=== PATIENT | female | born 1965 | race Caucasian/White ===

== ENCOUNTER 2019-08-17 06:12 | Inpatient (IN) | payer OTHER ==
[~2019-08-17] VITALS: Ht 157.5 cm; Wt 57.2 kg
[2019-08-17] VITALS (20 sets, daily range): BP systolic 85–111; BP diastolic 49–76
[~2019-08-17 06:12] MED LIST: ALPRAZOLAM0.25 MG ORAL; ATIVAN1 MG ORAL; CLARITIN-D 241 EACH PO; IRON PO; SPIRONOLACTONE50 MG ORAL; VITAMIN C250 MG ORAL
[2019-08-17] MEDS ORDERED: ceFAZolin sod 1 GM in NS 55 ML IVPB ONE (07:00)
[2019-08-17] MEDS ORDERED: Vancomycin 1gm vial IVPB ONE (07:11)
[2019-08-17] MEDS ORDERED: Thrombin 5000 units TOPIC ONE ×2 (07:11→07:12)
[2019-08-17] MEDS ORDERED: Bupivacaine w/Epi 0.5% 30ml Vial INJ ONE (07:12)
[2019-08-17] MEDS ORDERED: Bacitracin 50000 Units Vial ONE (07:12)
[2019-08-17] MEDS ORDERED: Gelfoam Size TOPIC ONE (07:12)
[2019-08-17] MEDS ORDERED: Lidocaine 1% MPF 10mg/ml 5ml ONE (07:29)
[2019-08-17] MEDS ORDERED: Midazolam 2mg/2ml Inj ONE (07:33)
[2019-08-17] MEDS ORDERED: fentaNYL 100 mcg/2 mL IV ONE (07:33)
[2019-08-17] MEDS ORDERED: NS Irrig 1000ml IRRIG ONE ×2 (07:37→08:46)
[2019-08-17] MEDS ORDERED: Succinylcholine 20mg/ml 10ml vial ONE (07:44)
[2019-08-17] MEDS ORDERED: Rocuronium Bromide 50mg/5ml Inj IV ONE (07:44)
[2019-08-17] MEDS ORDERED: Sterile Water Irrig 1000ml IRRIG ONE (08:12)
[2019-08-17] MEDS ORDERED: NS Irrig 1000ml ONE (08:12)
--- NOTE | 2019-08-17 08:27 | Pre-Procedure Note/Attestation ---
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 I attest that, if there was a reasonable possibility of needing a blood transfusion, the patient (or the patient's legal ambulatory service representative) was given the [facility] standardized written summary, pursuant to the [place] Blood Safety Act ([place] Health and Safety Code # 1645, as amended). I attest that I re-evaluated the patient just prior to the surgery and that there has been no change in the patient's H&P, except as documented below: Hung Hoffman MD Aug 17, 2019 08:27
--- NOTE | 2019-08-17 08:28 | Anethesia Preoperative Eval ---
Anesthesia Pre-op PMH/ROS General Date of Evaluation: Aug 17, 2019 Time of Evaluation: 08:12 Anesthesiologist: Tyler ASA Score: ASA 2 Mallampati Score Class I : Soft palate, uvula, fauces, pillars visible Class II: Soft palate, uvula, fauces visible Class III: Soft palate, base of uvula visible Class IV: Only hard plate visible Mallampati Classification: Class II Surgeon: Dalton Diagnosis: Reained lumbar spie hardwear Surgical Procedure: Revision of lumbar fusion Anesthesia History: none Family History: no anesthesia problems Allergies: Coded Allergies: FENTANYL (Verified Allergy, Severe, 08/16/19) LOW BP GABAPENTIN (Verified Allergy, Severe, 08/16/19) VERTIGO OPIOIDS - MORPHINE ANALOGUES (Verified Allergy, Severe, 08/16/19) "GOT VERY SICK" TRAMADOL (Verified Allergy, Severe, 08/16/19) TUNNEL VISION, GOT VERY SICK Uncoded Allergies: MOST NARCOTICS (Allergy, Severe, 08/16/19) Medications: see eMAR Patient NPO?: Yes NPO Date: Aug 16, 2019 NPO Time: 1900 Past Medical History Cardiovascular: Denies: HTN, CAD, NE, valve dz, arrhythmia, other Pulmonary: Denies: asthma, COPD, KIMMIE, other Gastrointestinal/Genitourinary: Reports: GERD Neurologic/Psychiatric: Reports: depression/anxiety, other - chronic pain; Denies: dementia, CVA, TIA Endocrine: Denies: DM, hypothyroidism, steroids, other HEENT: Denies: cataract (L), cataract (R), glaucoma, QUILEUTE (L), QUILEUTE (R), other Hematology/Immune: Denies: anemia, DVT, bleeding disorder, other Musculoskeletal/Integumentary: Denies: OA, RA, DJD, DDD, edema, other PMH Narrative: as above PSxH Narrative: Lumbar spine Sx x2, T&A wrist and ankle Sx Anesthesia Pre-op Phys. Exam Physician Exam Last Vital Signs Date Time Temp Pulse Resp B/P (MAP) Pulse Ox O2 Delivery O2 Flow Rate FiO2 08/17/19 06:58 Room Air 08/17/19 06:56 97.6 66 18 111/76 (88) 100 Constitutional: NAD Neurologic: CN 2-12 intact Cardiovascular: RRR, no M/R/G Respiratory: CTA Gastrointestinal: S/NT/ND Airway Exam Mallampati Score: Class II MO: full Neck: flexible ROM: full Teeth: intact Dentures: no upper, no lower Anesthesia Pre-op A/P Labs see chart Studies Pre-op Studies: EKG - NSR Risk Assessment & Plan Assessment: ASA 2 Plan: GA with ETT prone position, neuromonitoring Status Change Before Surgery: No Pre-Antibiotics Drug: Ancef 1gr. Given Within 1 Hr of Incision: Yes Time Given: 08:40 Manuel Scott MD Aug 17, 2019 08:28
[2019-08-17] MEDS ORDERED: Acetaminophen (Non formulary) 100 ML IV ONE (08:30)
[2019-08-17] MEDS ORDERED: Morphine Sulfate 10mg/ml Inj ONE (09:31)
[2019-08-17] MEDS ORDERED: Glycopyrrolate 0.2mg/ml 1ml Vial ONE (09:32)
[2019-08-17] MEDS ORDERED: Neostigmine 1mg/ml 10ml Inj ONE (09:32)
[2019-08-17] MEDS ORDERED: Sodium Chloride 10ml vial INJ ONE (09:32)
--- NOTE | 2019-08-17 10:11 | NUR ---
CASE MANAGEMENT:REVIEW 54 YR OLD FEMALE HERE FOR ELECTIVE SURGERY SI: PSEUDOARTHROSIS L4-5 RADICULOPATHY 97.6 66 18 111/76 100% ON RA IS: TO SURGERY FOR: REMOVAL OF HARDWARE,REDO POSTERIOR LUMBAR FUSION AND LAMINECTOMY : TO MED/SURG 3 EAST POST OP INTERQUAL CRITERIA MET
[2019-08-17] MEDS ORDERED: Ketorolac 30mg Inj ONE (10:22)
[2019-08-17] MEDS ORDERED: oxyCODONE 5mg IR tab ORAL PRN (10:45)
[2019-08-17] MEDS ORDERED: HYDROmorphone 1mg/ml Carpuject SUBQ PRN (10:45)
[2019-08-17] MEDS ORDERED: Milk of Magnesia 30ml Ud ORAL PRN ×2 (10:45→12:30)
[2019-08-17] MEDS ORDERED: Hydromorphone 0.5mg/0.5ml inj IVP PRN ×2 (10:45→11:30)
[2019-08-17] MEDS ORDERED: PCA HYDROmorphone 1mg/ml 30 ML IV PRN ×2 (10:45)
[2019-08-17] MEDS ORDERED: ALPRAZolam 0.25mg tab ORAL PRN (10:45)
[2019-08-17] MEDS ORDERED: Cyclobenzaprine 10mg Tab ORAL PRN (10:45)
[2019-08-17] MEDS ORDERED: LR 1000ml 1,000 ML IVLG SCH (11:27)
[2019-08-17] MEDS ORDERED: DiphenhydrAMINE 50mg/ml Inj IVP PRN (11:30)
[2019-08-17] MEDS ORDERED: Metoclopramide 10mg/2ml Inj IVP PRN (11:30)
[2019-08-17] MEDS ORDERED: Midazolam 2mg/2ml Inj IVP PRN (11:30)
[2019-08-17] MEDS ORDERED: Ketorolac 30mg Inj IV PRN (11:30)
--- NOTE | 2019-08-17 12:21 | Brief Operative Note ---
Immediate Post Operative Note Operative Note Pre-op Diagnosis: Pseudoarthrosis l45 with radic Procedure: L45 HWR. Redo fusion, and instrumentation, and L redo laminectomy and facetectomy Post-op Diagnosis: same as pre-op Findings: consistent w/pre-op dx studies Surgeon: marlon Hoop Maker Machine: tania cook Anesthesiologist: reg Anesthesia: general Specimen: none Complications: none Condition: stable Fluids: 1200 Estimated Blood Loss: volume - 100 Drains: hemovac Implant(s) used?: Yes - bactrin bone and ruby putty, spinal elements screws Hung Hoffman MD Aug 17, 2019 12:21
--- NOTE | 2019-08-17 14:00 | NUR ---
NURSE NOTES: REC'D FROM PACU SP REMOVAL OF HARDWARE , REDO POSTERIOR FUSION, DECOMPRESSION L4-L5 LAMINECTOMY. DROWSY BUT AROUSABLE. BACK DRESSING DRY AND INTACT. ICE PACK ON. V/S TAKEN. NO C/O PAIN. BLE STONG. IN NO DISTRESS.
--- NOTE | 2019-08-17 14:10 | NUR ---
NURSE NOTES: DR GOMEZ CALLED RE PT'S [facility]. LEFT MESSAGE TO RETURN CALL.
[2019-08-17] MEDS ORDERED: Rate Change PCA 1 Each MISC PRN (14:15)
--- NOTE | 2019-08-17 14:15 | Diagnostic Imaging Report ---
INDICATION: Pain, intraoperative TECHNIQUE: Intraoperative imaging Fluoroscopy time: 30.9 seconds Total dose: 0.17638 mGym2 Total number of images: 5 COMPARISON: None FINDINGS: Intraoperative images demonstrate removal of interspinous device at L4-5 and subsequent placement of posterior fusion hardware. IMPRESSION: Intraoperative imaging, as described
--- NOTE | 2019-08-17 14:17 | Immediate Post-Op Evaluation ---
Immediate Post-Op Evalulation Immediate Post-Op Evalulation Procedure: L4-L5 revision of lumbar fusion with removal of hardwear and decompression Date of Evaluation: Aug 17, 2019 Time of Evaluation: 12:45 IV Fluids: 1400 Blood Products: none Estimated Blood Loss: 100 Urinary Output: 250 Blood Pressure Systolic: 95 Blood Pressure Diastolic: 56 Pulse Rate: 72 Respiratory Rate: 20 O2 Sat by Pulse Oximetry: 99 Temperature (Fahrenheit): 97.7 Pain Score (1-10): 1 Nausea: No Vomiting: No Complications none Patient Status: reacts, patent, extubated, none Hydration Status: adequate Manuel Scott MD Aug 17, 2019 14:17
[2019-08-17] MEDS ORDERED: NS 250 ML IVPB ONE (14:28)
[2019-08-17] MEDS: D5 1/2NS 1,000 ML IV SCH ×2 (14:38→23:58)
[2019-08-17] MEDS ORDERED: ceFAZolin sod 1 GM in D5W 55 ML IV SCH (16:00)
--- NOTE | 2019-08-17 17:30 | Consultation ---
DATE OF CONSULTATION: 08/17/2019 CONSULTING PHYSICIAN: Sam Retana M.D. REFERRING PHYSICIAN: Hung Hoffman M.D. REASON FOR CONSULTATION: Acute pain consult. HISTORY OF PRESENT ILLNESS: Dear Dr. Hung Hoffman, Thank you kindly for consulting me to evaluate and render an opinion as to how to proceed in the management of the patient's acute postoperative lumbar spine pain after her revision lumbar spine instrumentation surgery today with removal of fractured hardware. The patient is a 54-year-old woman with multiple medication allergies making her postoperative course complicated. She has significant anxiety for which she uses Xanax, both Xanax and Ativan routinely throughout the day. She has drug allergies to fentanyl, hydrocodone, morphine, tramadol. Because of the patient's complicated medical history list and her postoperative lumbar spine instrumentation surgery today, you consulted me to help manage her postoperative pain. I performed a detailed history and physical examination. I reviewed the medical record in detail. I discussed the case with yourself, Dr. Hoffman. PAST MEDICAL HISTORY: 1. Acute postoperative lumbar spine pain, status post revision lumbar spine instrumentation surgery by Dr. Hung Hoffman in July 2019. 2. Work-related injury. 3. Multiple drug allergies. 4. Anxiety. MEDICATIONS AT HOME: Spironolactone 50 mg b.i.d., Xanax 0.25 mg b.i.d. p.r.n., Ativan 1 mg. ALLERGIES: Multiple, include fentanyl, Neurontin, hydrocodone, morphine analogs, tramadol. FAMILY HISTORY: Malignancy, diabetes. PAST SURGICAL HISTORY: 1. Lumbar spine fusion surgery in March 2012. 2. Left wrist surgery in 1981 x2. 3. Left foot surgery in 1988 x2. 4. Tonsillectomy in 1978. 5. Eye surgery . REVIEW OF SYSTEMS: Per Brian Dennison M.D. PHYSICAL EXAMINATION: GENERAL: Age 54. Height 5 feet 2 inches. Weight 132 pounds. Body mass index 24. VITAL SIGNS: Afebrile, pulse 66, respirations 18, blood pressure 111/76. Oxygen saturation 100%. HEENT: Normocephalic and atraumatic. CHEST: Clear to auscultation. HEART: Regular rate and rhythm. NEUROLOGIC: A detailed lumbar spine and neurologic exam per Dr. Hoffman. BREASTS: Deferred. GENITOURINARY: Deferred. DIAGNOSTIC TESTING: Laboratory studies from 08/09/2019 shows glucose 83, sodium 141, potassium 4.4, chloride 105, bicarbonate 23, BUN 17, and creatinine 0.8. Calcium 9.7. Total protein 6.5, albumin 4.2. AST 25, ALT 18, alkaline phosphatase 84. Total bilirubin 0.5. TSH 1.9. Hemoglobin A1c normal. Sedimentation rate normal at 14, less than 30. White count 6, hematocrit 43, platelets 278,000. INR 1.0. PTT 23. A 12-lead EKG shows heart rate 67. No evidence for acute cardiac ischemia. Preoperative chest x-ray from 08/09/2019 shows no acute cardiopulmonary disease. Pulmonary function testing shows normal spirometry in July 2019. CT lumbar spine dated 09/18/2018 shows status post anterior posterior fusion at L4-L5, fractured screw on the right side of L5-S1 in the anterior plate. IMPRESSION: 1. Acute postoperative lumbar spine pain, status post revision lumbar spine instrumentation surgery by Dr. Hung Hoffman in July 2019. 2. Work-related injury. 3. Multiple drug allergies. 4. Anxiety. TREATMENT RECOMMENDATIONS: After revision instrumentation surgery today, with the patient's multiple narcotic allergies, I have recommended the following analgesic plan. She cannot tolerate morphine, so I will trial her on a Dilaudid FRONT OFFICE ATTENDANT with 0.2 mg demand dose at 10-minute lockout and a 1 hour limit of 1.2 mg. Additionally, I have ordered a breakthrough dose of Dilaudid 0.5 mg intravenously every three hours for moderate pain with a double dose of 1 mg subcutaneously every three hours p.r.n. for severe breakthrough pain. The patient seems to have tolerated Flexeril in the past, I have ordered 5 mg orally every 8 hours p.r.n. for muscle spasm. I have asked nursing to place Chloraseptic spray at the bedside in case of any sore throat complaints. The patient has a long history of anxiety and benzodiazepine usage. She uses 1 mg of lorazepam, Ativan nearly every night. I have made that available on a p.r.n. basis, p.r.n. for insomnia. The patient uses Xanax 0.25 mg at home frequently, multiple times per day. I have increased the frequency to every 6 hours p.r.n. for anxiety at 0.25 mg oral dose. I have ordered a dose of Fioricet one tablet orally every 8 hours in case of headache symptoms. The patient components of Fioricet do not appear to be within the patient's allergy listing. If the patient does not tolerate [place], however, there is no allergy to avoid oxycodone, Percocet. So, I will trial her on 10 mg orally oxycodone every 3 hours p.r.n. for mild pain. I have ordered multiple p.r.n. doses to help the patient's comfort postoperatively. I have ordered Tylenol for fever p.r.n. I have ordered Benadryl 25 mg orally every 6 hours in case of any itching complaints p.r.n. I have ordered milk of magnesia as a rescue laxative. I have ordered Mylanta 30 mL q.6 h. in case of any GERD symptom exacerbation. I have ordered Zofran 4 mg intravenously every 4 hours p.r.n. for nausea and vomiting. I will place the patient on Colace 100 mg b.i.d. as a stool softener to help promote bowel regularity. I will defer any hypertensive issues to the hospitalist team. I will have restart her Aldactone at b.i.d. 50 mg dosing. I have ordered incentive spirometer to encourage good pulmonary toilet. I will defer DVT prophylaxis to the surgeon. Sam Retana M.D. DR: JH JOB#: [id number] CC:
[2019-08-17] MEDS: Docusate 100mg cap ORAL SCH (17:39)
[2019-08-17] MEDS ORDERED: Docusate 100mg cap ORAL SCH (18:00)
--- NOTE | 2019-08-17 18:30 | NUR ---
NURSE NOTES: offered assistance to go to the bathroom to urinate. states has no urge to urinate and no discomfort. bladder scan done 0cc obtained. not distended.
--- NOTE | 2019-08-17 19:00 | NUR ---
NURSE NOTES: resting. no acute changes.
[2019-08-17] MEDS: Chloraseptic Spray 20mL Bottle ORAL PRN ×2 (19:01→23:59)
[2019-08-17] MEDS: PCA shift volume MISC SCH (19:17)
--- NOTE | 2019-08-17 19:29 | NUR ---
HAND-OFF: Report given to hanna archibald rn.
--- NOTE | 2019-08-17 19:45 | NUR ---
NURSE NOTES: Recieved report from RN JOSUE allen is a/ox4, breaths even regular and unlabored . monitoring s/p spinal fusion, patient on O2 with Nc at 3litres ,surgical site dressing in intact patient states feeling uncomfortable only when she moves. bed in low and locked position , call light with in reach
[2019-08-17] MEDS: LORazepam 1mg tab ORAL SCH ×2 (20:04→23:59)
[2019-08-17] MEDS: ceFAZolin sod 1 GM in D5W 55 ML IV SCH (20:04)
--- NOTE | 2019-08-17 20:15 | Operative Note - Dictated ---
DATE OF OPERATION: 08/17/2019 SURGEON: Hung Hoffman M.D. CONCHE LOADER AND UNLOADER: Gilberto Finch PA-C. ANESTHESIOLOGIST: Manuel Scott M.D. ANESTHESIA TYPE: General endotracheal anesthesia. PREOPERATIVE DIAGNOSES: 1. Status post anterior/posterior spinal fusion using interspinous fusion device. 2. Pseudarthrosis with catastrophic hardware failure anteriorly. 3. Left lower extremity radiculopathy status post prior decompression. 4. Mechanical back pain with left lower extremity radiculopathy. POSTOPERATIVE DIAGNOSES: 1. Status post anterior/posterior spinal fusion using interspinous fusion device. 2. Pseudarthrosis with catastrophic hardware failure anteriorly. 3. Left lower extremity radiculopathy status post prior decompression. 4. Mechanical back pain with left lower extremity radiculopathy. PROCEDURE: 1. Removal of interspinous fixation device. 2. Exploration of fusion. 3. Pedicle screw instrumentation, L4-L5 bilaterally. 4. Posterior spinal fusion/enrollment advisor lateral spinal fusion, L4-L5, right side. 5. Redo laminectomy and complete facetectomy L4-L5. 6. Lysis of adhesions and neurolysis. 7. Pedicle screw stimulation and neurodiagnostic testing. 8. Use of fluoroscopy for localization. 9. Use of operating microscope. ESTIMATED BLOOD LOSS: 100 mL. FLUIDS: 1200. URINE: 400. COMPLICATIONS: None. INDICATIONS: This is a very pleasant woman with mechanical back pain and left lower extremity pain with imaging studies consistent with pseudoarthrosis and catastrophic hardware failure. Surgical intervention was discussed. After all conservative care failed, she elected to proceed. RISK NOTE: The patient was explained in detail risks and benefits of surgery to include, but not be limited to those of bleeding, infection, damage to nerves, vessels, tendons, anesthetic risk, allergic reaction, aspiration, possibly . The patient understood and wished to proceed. OPERATIVE PROCEDURE IN DETAIL: The patient was taken to the operative suite. After general endotracheal anesthesia was obtained, Thomas catheter was placed. She was turned prone onto a Carl frame. The back was prepped and draped in the usual sterile fashion. Prior incision was marked out. It was infiltrated with Marcaine with epinephrine. Incision was extended proximally and reincised. Subperiosteal dissection was carried out bilaterally at L4-L5 level. The hardware was identified. There was a small shell of bone and scar tissue which was removed in a piecemeal fashion. The interspinous fusion device, which clearly had not fused, was mobilized, disengaged, and removed. At this juncture, attention was first turned to the right side. Meticulous exploration of the fusion was obtained demonstrating a mobile facet joint. At this point, decortication of the transverse processes was performed. The pedicle screws were then identified, drilled, probed, and the appropriate sized screws (45 x 6.5 mm screws spinal elements) were inserted after being under tapped with a 5 mm tap. These were cannulated screws. At this point, once satisfied with hardware placement, pedicle stimulation was tested and noted to be at or above 20 milliamps. At this point, the large piece of Bacterin bone strip was deployed and placed in the intertransverse region. The appropriate sized rods were applied. Locking caps were applied and torqued to the appropriate level. The right side was packed off. Attention was made for the left side in a similar fashion. Pedicle screws were placed at the L4 and L5 level. Once the screws were placed, a high-power microscope was brought into place and a complete facetectomy was performed by drilling out the facet joint and the lateral edge of the lamina down to the deeper tissue. The nerve root was protected. The facet was removed in a piecemeal fashion then with a Kerrison punch. The epidural scar tissue was mobilized. The deep (anterior facet) capsule was then removed in a piecemeal fashion, exposing the exiting L4 nerve root on the left side. At this point, copious irrigation was applied. It was elected not to put bone graft on the left side. FloSeal was applied. The appropriate sized rods were applied on the left side after pedicle screw stimulation was confirmed to be above 20 milliamps. At this juncture, once satisfied with the fixation, meticulous hemostasis was achieved. Copious irrigation was performed. Additional decortication of the right side at L4 and L5 lamina was performed and local autograft bone as well as Howard Putty were then applied onto the right side. Medium-sized Hemovac drain was placed deep to the fascia. The vancomycin powder was applied. The fascia was then repaired in a [id number] fashion. Subcutaneous closure using 2-0 Vicryl. Dermabond was applied in the process of removing the drapes, the Hemovac did pull out, the hole was covered, and no attempts at replacements was made as adequate hemostasis was achieved initially. At this point, the patient was then turned onto her back, awakened, and extubated. Thomas catheter was inadvertantly removed and she was transferred to recovery room in stable condition. [facility] Sri Hoffman DR: VIRIDIANA JOB#: [id number] CC: DAVONTE
[2019-08-17] MEDS ORDERED: LORazepam 0.5mg tab ORAL SCH (21:00)
[2019-08-17] MEDS ORDERED: Spironolactone 50mg tab ORAL SCH (21:00)
[2019-08-18] VITALS (7 sets, daily range): BP systolic 89–139; BP diastolic 49–82
[2019-08-18] MEDS: LORazepam 1mg tab ORAL PRN ×2 (00:14→21:08)
--- NOTE | 2019-08-18 04:10 | NUR ---
NURSE NOTES: Bladder scan done with 433ml result residual. Assisted pt to toilet & pt urinated 550 ml of yellow urine without difficulty.
[2019-08-18] MEDS: ceFAZolin sod 1 GM in D5W 55 ML IV SCH ×2 (04:21→11:31)
--- NOTE | 2019-08-18 06:54 | 48 Hour Post Anesthesia Eval ---
Post Anesthesia Evaluation Procedure: L4-L5 revision of lumbar fusion with removal of hardwear and decompression Date of Evaluation: Aug 18, 2019 Time of Evaluation: 06:53 Blood Pressure Systolic: 104 0: 62 Pulse Rate: 68 Respiratory Rate: 20 Temperature (Fahrenheit): 98.6 O2 Sat by Pulse Oximetry: 100 Airway: patent Nausea: No Vomiting: No Pain Intensity: 3 Hydration Status: adequate Cardiopulmonary Status: Stable Mental Status/LOC: patient returned to baseline Follow-up Care/Observations: 0 Post-Anesthesia Complications: 0 Follow-up care needed: N/A Ottoniel Dc MD Aug 18, 2019 06:54
[2019-08-18] MEDS: PCA shift volume MISC SCH (07:16)
--- NOTE | 2019-08-18 07:20 | NUR ---
HAND-OFF: Report given to VERO Pozo. Pt in stable condition.
[2019-08-18] MEDS: Chloraseptic Spray 20mL Bottle ORAL PRN (07:47)
[2019-08-18] MEDS: Docusate 100mg cap ORAL SCH ×2 (08:53→17:39)
--- NOTE | 2019-08-18 08:53 | Orthopedic Spine Progress Note ---
Ortho Spine - Progress Note Subjective Symptoms: c/o post-op back pain, other - Rt thigh and Rt ankle pain likely due positioning Objective Vital Signs: Last 24 Hour Vital Signs Date Time Temp Pulse Resp B/P (MAP) Pulse Ox O2 Delivery O2 Flow Rate FiO2 08/18/19 08:30 Nasal Cannula 3.0 08/18/19 08:00 98.5 75 18 110/68 (82) 97 08/18/19 08:00 75 18 97 08/18/19 06:54 68 20 100 08/18/19 04:00 68 20 100 08/18/19 04:00 98.6 68 20 104/62 (76) 100 08/18/19 00:00 99.3 66 20 113/64 (80) 99 08/18/19 00:00 66 20 99 08/17/19 21:00 Nasal Cannula 3.0 08/17/19 20:00 97.1 61 18 96/55 (69) 99 08/17/19 20:00 61 18 99 08/17/19 18:45 98.1 68 20 96/60 (72) 99 08/17/19 16:00 97.3 72 20 102/72 (82) 96 08/17/19 16:00 68 17 96 08/17/19 15:00 97.1 53 19 90/51 (64) 97 08/17/19 14:40 68 17 97 08/17/19 14:30 98.3 69 18 89/59 (69) 97 08/17/19 14:17 72 20 99 08/17/19 14:05 68 17 94 08/17/19 14:00 97.7 68 17 89/49 (62) 94 08/17/19 14:00 Nasal Cannula 3.0 08/17/19 13:50 15 08/17/19 13:50 97.3 08/17/19 13:41 97.3 70 15 93/50 100 Nasal Cannula 3 08/17/19 13:35 15 08/17/19 13:35 72 16 92/56 100 Nasal Cannula 3 08/17/19 13:25 68 14 95/58 100 Nasal Cannula 3 08/17/19 13:20 14 08/17/19 13:15 72 15 91/55 100 Nasal Cannula 3 08/17/19 13:05 15 08/17/19 13:00 76 17 96/55 100 Simple Mask 6 08/17/19 12:55 82 16 98/60 100 Simple Mask 6 08/17/19 12:50 83 15 94/58 100 Simple Mask 6 08/17/19 12:45 97.5 85 12 85/54 100 Simple Mask 6 I&O: Intake and Output 08/17/19 08/18/19 19:00 07:00 Intake Total 2620 ml 1540 ml Output Total 350 ml 550 ml Balance 2270 ml 990 ml Intake Oral 120 ml 240 ml IV Total 2500 ml 1300 ml Output Urine Total 250 ml 550 ml Estimated Blood Loss 100 ml Wound: clean, intact Drains: none Neuro Status: normal Assessment Procedure Performed: L45 HWR. Redo fusion, and instrumentation, and L redo laminectomy and facetectomy Plan Plan: PT, pain management, d/c antibiotics, discharge plan Hung Hoffman MD Aug 18, 2019 08:53
--- NOTE | 2019-08-18 08:59 | NUR ---
P.T Note: P.T evaluation completed and tx initiated per spinal protocol. Please refer to P.T evaluation for current functional status. Skilled P.T is warranted to ensure compliance in spinal/precautions and safety in functional activities.
--- NOTE | 2019-08-18 09:27 | NUR ---
INSURANCE: SÁNCHEZ ARNEL BRASWELL T:[phone] PATIENT IS AUTHORIZED FOR 4 DAYS PATIENT HAS LSO BRACE PLEASE CALL WITH ANY HOME HEALTH NEED OR DME ITEMS Addendum: 08/18/19 at 1315 by ABHINAV LOUISE *-* BAR NOTES *-* SCHEDULED ADMISSION 4/DAYS APPROVED S/W DIAN BROWN/ADJ... P- [phone] IF ADDITIONAL DAYS NEEDED, PLEASE FAX THE REQUEST TO: FX: [phone] (AFTER THE 4TH DAY)..
[2019-08-18] MEDS: D5 1/2NS 1,000 ML IV SCH (10:05)
[2019-08-18] MEDS ORDERED: ALPRAZolam 0.25mg tab ORAL SCH (11:04)
[2019-08-18] MEDS ORDERED: Hydromorphone 0.5mg/0.5ml inj SUBQ PRN (13:45)
[2019-08-18] MEDS ORDERED: Tubing IV Secondary IV ONE (13:52)
[2019-08-18] MEDS ORDERED: NS 275ml ONE ×2 (13:52→18:34)
[2019-08-18] MEDS ORDERED: D5 1/2NS 1000ml IV ONE ×2 (13:52)
--- NOTE | 2019-08-18 16:01 | NUR ---
CASE MANAGEMENT:REVIEW 08/18/19 SI: POD# 1 REMOVAL OF HARDWARE,REDO POSTERIOR LUMBAR FUSION AND LAMINECTOMY 98.5 75 18 110/68 97% ON 3L NC IS: IV CEFAZOLIN X3 BAGS IV DEXTROSE @100ML/HR FEOSOL PO QD : TO MED/SURG 3 EAST POST OP DCP: DISCHARGE HOME WHEN MEDICALLY CLEAR DC PLANNING
--- NOTE | 2019-08-18 16:30 | Progress Note ---
DATE: 08/18/2019 ACUTE PAIN MANAGEMENT PHYSICIAN PROGRESS NOTE. MEDICATIONS: Medication administration record reviewed. Medications include Tylenol, Fioricet, Mylanta, Xanax, IV fluids, Flexeril, Dilaudid LOGISTICS PLANNER, Benadryl, Colace, iron, Claritin, Ativan, milk of magnesia, Zofran, , Chloraseptic spray. LABORATORY STUDIES: No interval laboratory studies. OBJECTIVE: VITAL SIGNS: Within normal limits. Afebrile, pulse 75, respirations 18, blood pressure 110/68, oxygen saturation 97% on room air. I saw the patient at bedside with the nurse RN, Nohelia. I discussed the case with the surgeon, Dr. Hoffman. The patient ambulated well with physical therapy. She has been voiding urine well and tolerating advancing diet. The patient is not so much stoic but is so fearful of side effects from pain medication that she has restricted her usage to entirely as needed benzodiazepines, along with Flexeril. I decided to discontinue her LOGISTICS PLANNER and Hep-Lock her IV fluids in order to encourage movement in and out of bed. I switched her breakthrough dose of Dilaudid to subcutaneous route, which might have less side effects in case the patient decides to choose to use the medication. I will place the patient on [id number] Tylenol 650 mg every 6 hours to help with baseline analgesia. I will double dose of Flexeril 5 mg which was already well tolerated to 10 mg, which she will continue q. 8 hours p.r.n. for muscle spasms. The patient has been having significant left lower extremity pain. However, the patient knows that such and she wishes to avoid the narcotics. I did question the patient if she can tolerate oxycodone as she has so many other opioid narcotic allergies. The patient states that oxycodone caused some itching in the past, that she would prefer to try to avoid the medication. We will see how the patient is able to advance with usage of her incentive spirometer as well as with ambulation. The patient is alert and oriented and consenting to the above treatment. She understands that the pain after revision instrumentation surgery would be significant but has consented to trial this current regimen. Sam Retana M.D. DR: Ele JOB#: [id number] CC:
[2019-08-18] MEDS ORDERED: ALPRAZolam 0.25mg tab ORAL PRN (16:45)
[2019-08-18] MEDS: Cyclobenzaprine 10mg Tab ORAL PRN (17:49)
--- NOTE | 2019-08-18 19:00 | NUR ---
NURSE NOTES: RESTING. IN NO APPARENT DISTRESS.
--- NOTE | 2019-08-18 19:06 | NUR ---
HAND-OFF: Report given to Esther DAVIS RN.
--- NOTE | 2019-08-18 19:30 | NUR ---
NURSE NOTES: Received report from VERO Pozo and rounds made with outgoing nurse. Received pt laying in bed, AOX4, pain level 7/10. Offered Dilaudid pain medication, pt refused. Posterior surgical dressing with moderate drainage. Will change dressing. Icepack in place. Neuro check wnl. Bed in lowest position and locked, side rails up x 2, call light within reach. will continue to monitor.
--- NOTE | 2019-08-18 20:22 | Cardiology Progress Note ---
Assessment/Plan Assessment/Plan hypotension resolved withj ivf aldactone on hold dvt ppx atelectasi ppx [id number] Objective Last 24 Hour Vital Signs Date Time Temp Pulse Resp B/P (MAP) Pulse Ox O2 Delivery O2 Flow Rate FiO2 08/18/19 18:10 98.5 08/18/19 16:00 98.5 88 20 111/68 (82) 99 08/18/19 12:00 99.0 80 19 123/72 (89) 97 08/18/19 11:45 80 19 97 08/18/19 08:30 Nasal Cannula 3.0 08/18/19 08:00 98.5 75 18 110/68 (82) 97 08/18/19 08:00 75 18 97 08/18/19 06:54 68 20 100 08/18/19 04:00 68 20 100 08/18/19 04:00 98.6 68 20 104/62 (76) 100 08/18/19 00:00 99.3 66 20 113/64 (80) 99 08/18/19 00:00 66 20 99 08/17/19 21:00 Nasal Cannula 3.0 Intake and Output 08/17/19 08/18/19 18:59 06:59 Intake Total 2520 ml 1540 ml Output Total 350 ml 550 ml Balance 2170 ml 990 ml Intake Oral 120 ml 240 ml IV Total 2400 ml 1300 ml Output Urine Total 250 ml 550 ml Estimated Blood Loss 100 ml Satish Ferguson MD Aug 18, 2019 20:22
--- NOTE | 2019-08-18 20:30 | NUR ---
NURSE NOTES: Posterior surgical dressing moderate drainage. Change dressing applied 4x4 gauze, tegaderm, ice pack in place. Will continue to monitor.
[2019-08-19] VITALS: BP 100/64
--- NOTE | 2019-08-19 03:01 | Consultation ---
DATE OF CONSULTATION: 08/18/2019 CARDIOLOGY CONSULTATION CONSULTING PHYSICIAN: Satish Ferguson M.D. REFERRING PHYSICIAN: Hung Hoffman M.D. REASON FOR REFERRAL: Postoperative medical care. HISTORY OF PRESENT ILLNESS: This is a middle-aged lady, who has a history of back problems for which she underwent surgery by Dr. Hoffman, status post spinal fusion at L4-L5 implantation. The patient was notified yesterday by nursing staff after surgery the patient's blood pressure was a little bit on the low side. IV fluids were ordered and she did improve. Her main issue at this time is pain in the right thigh and leg area when she tries to move it. She does not have any chest pain or shortness of breath. She does have some sore throat. She does have some pain in the rib cage area likely from the position that she was placed, but otherwise no pain, pressure, or discomfort in the chest. No heart pounding or palpitation. REVIEW OF SYSTEMS: GASTROINTESTINAL: No nausea, vomiting, or diarrhea. She has had flatus. She has not had a bowel movement yet. GENITOURINARY: Denies any burning on urination. PULMONARY: She does have some coughing. No sputum production. CONSTITUTIONAL: No fevers, chills, or night sweats. NEUROLOGIC: Negative except for some right leg pain more so than anything else. PAST MEDICAL HISTORY: Positive for history of hypertension. PAST SURGICAL HISTORY: Tonsillectomy, left wrist and foot, and disc compression in 2011, and fusion of L4-L5 in 2017. FAMILY HISTORY: Mother . Father . One brother and one sister healthy. There has been no family history of diabetes, cancer of breast and lung as well. SOCIAL HISTORY: She does not smoke. She does drink occasional alcoholic beverages. ALLERGIES: To fentanyl, anaphylaxis; gabapentin, dizziness; [place], anaphylaxis. PHYSICAL EXAMINATION: GENERAL: Shows to be a middle-aged female, in no respiratory distress. NECK: Supple. No jugular venous distention. LUNGS: Clear to auscultation and percussion. CARDIAC: S1 is normal. S2 is normal. Regular rate and rhythm. No heaves, thrills, or gallops noted. ABDOMEN: Soft, nontender. Positive bowel sounds. EXTREMITIES: There is no edema. Pneumatic compression stockings are in place. She has good strength distally in her foot and moves all four extremities. LABORATORY DATA: Laboratory values, none postop. Preop laboratories were reviewed. Blood sugar of 83. Creatinine 0.8 and potassium of 4.4. TSH of 1.86. A1c of 5.2. BNP of 58. White count of 5.8, hemoglobin 14.7, and platelet count of 270,000. INR 1, PTT of 23. EKG preoperatively has been performed, unfortunately difficult to review because of poor quality of fax. Chest x-ray showed negative. ASSESSMENT AND PLAN: 1. Hypotension postoperatively, which has resolved. IV fluids has been administered, Aldactone has been on hold. 2. Postoperative pain. 3. Low back pain. This patient has been seen in internal medicine and cardiology consultation. Postoperatively to ambulate. Postoperative surgical management by Dr. Hoffman and pneumatic compression stockings to be used for DVT prophylaxis. Atelectasis prophylaxis was discussed, early ambulation. She is already eating, hope to be able to go home within the next day or two. Satish Ferguson M.D. DR: SHIRA JOB#: [id number] CC:
[2019-08-19 06:00] VITALS: BP 96/56
--- NOTE | 2019-08-19 07:00 | Progress Note ---
DATE: 08/19/2019 ACUTE PAIN MANAGEMENT PHYSICIAN PROGRESS NOTE MEDICATIONS: Medication administration record reviewed. Medications include [id number] Tylenol, Fioricet, Mylanta, Xanax, Flexeril, Benadryl, Colace, iron, Dilaudid, Claritin, Ativan, milk of magnesia, Zofran, Chloraseptic spray. LABORATORY STUDIES: No interval laboratory studies. OBJECTIVE: VITAL SIGNS: Within normal limits. Afebrile, pulse 91, respirations 18, blood pressure 100/64, oxygen saturation 98% on room air. I saw the patient at the bedside. After discussion with the nurse RN, Otoniel, the charge nurse RN, Joshua, I also discussed the case with the surgeon, Dr. Hung Hoffman. The patient continues to progress fairly well despite her reluctance to use significant doses of pain medications, due to her significant allergies and adverse side effects to narcotics. She was having a persistent headache and tolerated the Fioricet tablets given earlier this morning without side effects. She is receiving [id number] Tylenol, which is helping somewhat. Still has considerable lower extremity pain, but this is not unexpected, due to her reluctance to use much pain medication. She has been able to move in and out of bed to the restroom. She has no nausea symptoms. She has no itching complaints. She is advancing her diet. Denies any shortness of breath or chest pain. The patient will continue on ywxuhr-[id number] Tylenol for baseline analgesia. I have encouraged her to use the p.r.n. Flexeril, as well as dose of Fioricet in case her headache symptoms recur. She continues to respond well to benzodiazepine. She is using nightly Ativan. I did encourage the p.r.n. Xanax, which she takes chronically at home. The dosing for the Xanax is q.6 h. p.r.n., which is more than adequate for her dosing needs currently. We will continue with physical therapy training as tolerated. I did leave a prescription for Fioricet and Flexeril for outpatient usage. Sam Retana M.D. DR: ALLEGRA JOB#: [id number] CC:
[2019-08-19 08:00] VITALS: BP 110/65
--- NOTE | 2019-08-19 08:02 | NUR ---
NURSE NOTES: Patient awake, alert x4; eating breakfast; on room air, no sing of distress and shortness of breath; no sing of chest pain; IV Left-Hand 18G flushes well; dressing dry and intact at the back; SCD on; side rails up x2, breaks engaged, bed at lowest position; call light within reach; will keep monitoring.
[2019-08-19] MEDS: Docusate 100mg cap ORAL SCH ×2 (08:36→17:15)
--- NOTE | 2019-08-19 09:10 | Orthopedic Spine Progress Note ---
Ortho Spine - Progress Note Subjective Symptoms: c/o post-op back pain, improved - as compared to pre-op Objective Vital Signs: Last 24 Hour Vital Signs Date Time Temp Pulse Resp B/P (MAP) Pulse Ox O2 Delivery O2 Flow Rate FiO2 08/19/19 08:00 98.2 89 16 110/65 (80) 98 08/19/19 06:00 99.3 89 18 96/56 (69) 97 08/19/19 00:00 98.7 91 18 100/64 (76) 98 08/18/19 21:00 Room Air 08/18/19 20:00 99.0 94 20 139/82 (101) 99 08/18/19 18:10 98.5 08/18/19 16:00 98.5 88 20 111/68 (82) 99 08/18/19 12:00 99.0 80 19 123/72 (89) 97 08/18/19 11:45 80 19 97 I&O: Intake and Output 08/18/19 08/19/19 19:00 07:00 Intake Total 1025 ml 300 ml Output Total 700 ml 800 ml Balance 325 ml -500 ml Intake Oral 570 ml 300 ml IV Total 455 ml Output Urine Total 700 ml 800 ml # Voids 1 Wound: clean, dry, intact Drains: none Neuro Status: normal Assessment Procedure Performed: L45 HWR. Redo fusion, and instrumentation, and L redo laminectomy and facetectomy Plan Plan: PT, pain management, discharge plan - likely in am. please coordinate transportation in am to go home Hung Hoffman MD Aug 19, 2019 09:10
--- NOTE | 2019-08-19 09:50 | NUR ---
DISCHARGE PLANNIN08/20/19 ANTICIPATED DISCHARGE HOME 08/20/19 TRANSPORTATION PROVIDED BY [facility] T: [phone] PLEASE CALL TO GIVE TIME OF PICKUP FOR PATIENT IN AM Addendum: 08/19/19 at 0958 by RODRIGO MOORE LVN ID #[id number] FOR PATIENT REFERENCE
[2019-08-19 12:00] VITALS: BP 111/69
[2019-08-19] MEDS: Cyclobenzaprine 10mg Tab ORAL PRN ×2 (13:42→21:45)
--- NOTE | 2019-08-19 15:49 | NUR ---
CASE MANAGEMENT:REVIEW 08/19/19 SI: POD# 2 REMOVAL OF HARDWARE,REDO POSTERIOR LUMBAR FUSION AND LAMINECTOMY 98.2 89 16 110/65 98% ON RA IS: FEOSOL PO QD CLARITIN PO QD : TO MED/SURG 3 EAST POST OP DCP: DISCHARGE HOME WHEN MEDICALLY CLEAR DC IN AM
[2019-08-19 16:00] VITALS: BP 105/72
--- NOTE | 2019-08-19 19:05 | NUR ---
HAND-OFF: Report given to VERO Michel.
--- NOTE | 2019-08-19 19:45 | NUR ---
NURSE NOTES: Received report from VERO Knowles. Received pt sitting in chair wearing back brace, AOx4, pain level 2/10, no distress noted. Surgical dressing c/d/i. Pt ambulated from chair to bed without difficulty, gait steady. Place ice pack to posterior back. Bed in lowest position and locked, side rails up x 2, call light within reach. Will continue to monitor.
--- NOTE | 2019-08-19 19:55 | Cardiology Progress Note ---
Assessment/Plan Assessment/Plan 1. Hypotension postoperatively, 2. Postoperative pain. 3. Low back pain. doin well walked pain is better home in am Subjective Cardiovascular: Denies: chest pain Respiratory: Denies: shortness of breath Gastrointestinal/Abdominal: Reports: poor appetite; Denies: abdominal pain Genitourinary: Denies: burning Objective Last 24 Hour Vital Signs Date Time Temp Pulse Resp B/P (MAP) Pulse Ox O2 Delivery O2 Flow Rate FiO2 08/19/19 17:46 98.1 08/19/19 16:00 98.1 86 14 105/72 (83) 99 08/19/19 12:00 98.1 92 15 111/69 (83) 100 08/19/19 09:00 Room Air 08/19/19 08:00 98.2 89 16 110/65 (80) 98 08/19/19 06:00 99.3 89 18 96/56 (69) 97 08/19/19 00:00 98.7 91 18 100/64 (76) 98 08/18/19 21:00 Room Air 08/18/19 20:00 99.0 94 20 139/82 (101) 99 General Appearance: no apparent distress Neck: supple Cardiovascular: normal rate Respiratory/Chest: lungs clear Abdomen: normal bowel sounds, non tender, soft Extremities: no swelling, other - pneumatic stocking in place Intake and Output 08/18/19 08/19/19 19:00 07:00 Intake Total 1025 ml 300 ml Output Total 700 ml 800 ml Balance 325 ml -500 ml Intake Oral 570 ml 300 ml IV Total 455 ml Output Urine Total 700 ml 800 ml # Voids 1 Microbiology Date/Time Source Procedure Growth Status 08/17/19 06:45 Nasal Nares MRSA Culture - Final NO METHICILLIN RESISTANT STAPH AUREUS... Complete Satish Ferguson MD Aug 19, 2019 19:55
[2019-08-19 20:00] VITALS: BP 91/55
[2019-08-19] MEDS: LORazepam 1mg tab ORAL PRN (21:01)
[2019-08-20] VITALS: BP 98/56
[2019-08-20 06:11] VITALS: BP 100/68
--- NOTE | 2019-08-20 07:11 | NUR ---
HAND-OFF: Report given to VERO Lanza. Pt in stable condition.
--- NOTE | 2019-08-20 08:20 | NUR ---
NURSE NOTES: Pt awake, A/O x 4, calm , denies pain, dressing on the back, CDI, pt ambulated in the hallway, possible dc am , waiting for call back from MD, voiding, call light within reach, bed in low position, bed alarm on, fall precaution maintained. will continue to monitor.
[2019-08-20] MEDS: Docusate 100mg cap ORAL SCH (08:36)
--- NOTE | 2019-08-20 08:36 | Orthopedic Spine Progress Note ---
Ortho Spine - Progress Note Subjective Symptoms: c/o post-op back pain, improved - as compared to pre-op Objective Vital Signs: Last 24 Hour Vital Signs Date Time Temp Pulse Resp B/P (MAP) Pulse Ox O2 Delivery O2 Flow Rate FiO2 08/20/19 06:11 98.6 81 17 100/68 (79) 98 08/20/19 00:00 99.5 81 17 98/56 (70) 100 08/19/19 21:00 Room Air 08/19/19 20:00 99.1 80 18 91/55 (67) 96 08/19/19 17:46 98.1 08/19/19 16:00 98.1 86 14 105/72 (83) 99 08/19/19 12:00 98.1 92 15 111/69 (83) 100 08/19/19 09:00 Room Air I&O: Intake and Output 08/19/19 08/20/19 19:00 07:00 Intake Total 1200 ml Balance 1200 ml Intake Oral 1200 ml # Voids 4 Wound: clean, intact Drains: none Neuro Status: normal Assessment Procedure Performed: L45 HWR. Redo fusion, and instrumentation, and L redo laminectomy and facetectomy Plan Plan: PT, pain management, discharge to home Hung Hoffman MD Aug 20, 2019 08:36
[2019-08-20 08:55] VITALS: BP 97/58
--- NOTE | 2019-08-20 09:07 | NUR ---
Received order to dc pt home with prescription, Dressing changed per order, belongings with pt, no home meds, dc instruction given , verbalize understanding, brace on when OOB, ICE pack PRN, [facility] called, waiting for transport.
--- NOTE | 2019-08-20 11:45 | Progress Note ---
DATE: 08/20/2019 ACUTE PAIN MANAGEMENT PHYSICIAN PROGRESS NOTE MEDICATIONS: Medication administration record reviewed. Medication include Tylenol, Fioricet, Mylanta, Xanax, Flexeril, Benadryl, Colace, iron, Dilaudid, Claritin, Ativan, milk of magnesia, Zofran, and Chloraseptic spray. LABORATORY STUDIES: No interval laboratory studies. OBJECTIVE: VITAL SIGNS: T-max and T-current is 99.5, pulse 81, respirations 17, blood pressure 100/56, and oxygen saturation 100% on room air. I saw the patient at the bedside. I discussed the case with the nurse RN, Otoniel, and the surgeon, Dr. Hung Hoffman. The patient continues to progress very well after the surgery. Dr. Hoffman evaluated the patient yesterday and was pleased with the patient's improvement. The patient has been continuing to advance her ambulation with physical therapy. She continues to sleep soundly at night for long intervals of several hours. She is primarily using her benzodiazepines for analgesia, along with intermittent doses of p.r.n. Flexeril. She also remains on [id number] Tylenol, which seems to be helping some . The patient is using Flexeril. I did give her prescription for Flexeril with Fioricet for outpatient usage. Her headache symptoms have improved somewhat. She is voiding urine well. She is tolerating, advancing diet. She has no nausea problems. She denies shortness breath or chest pain. With her mildly elevated temperature, I encouraged aggressive incentive spirometer usage. The patient did have questions regarding showering, which Dr. Hoffman will address prior to the patient's discharge to home. Sam Retana M.D. DR: ALLEGRA JOB#: [id number] CC:
--- NOTE | 2019-08-21 22:31 | Discharge Summary ---
Discharge Summary Discharge Summary _ DATE OF ADMISSION: 08/17/2019 DATE OF DISCHARGE: 08/20/2019 DISCHARGED BY: Dr. Hung Hoffman SURGEON: Dr. Hung Hoffman SHOWER MAID: Dr. Sam Ferguson BRIEF HOSPITAL COURSE: Patient is a 54-year-old female, with mechanical back pain and left lower extremity pain. Imaging showed consistent with pseudoarthrosis and catastrophic hardware failure. Conservative management have failed. She elected for surgical management. She was admitted on 08/17/2019 and underwent L4-L5 redo laminectomy and facetectomy. She tolerated procedure well. Surgery was uneventful. Post-operatively, patient was admitted for post-op care. She was followed by pain management and rn paralegal. Patient had multiple allergies to narcotics. She was initially given Dilaudid APPLICATION SERVICES MANAGER. She was given Flexeril for muscle spasms. She has a long history of anxiety on benzodiazepine use. Dilaudid was changed to subcut. She was placed on SCDs for DVT prophylaxis and was encouraged use of incentive spirometer. She had an episode of hypotension that resolved with IV fluids. Aldactone was placed on hold. She complained of pain to the right thigh and right ankle, likely due to positioning. She was seen by PT. Diet was advanced. Incision was clean, dry and intact. Patient was ambulating well with good pain control and was tolerating diet. Patient was eventually cleared for discharge home. FINAL DIAGNOSES: 1. Status post anterior/posterior spinal fusion using interspinous fusion device. 2. Pseudarthrosis with catastrophic hardware failure anteriorly. 3. Left lower extremity radiculopathy status post prior decompression. 4. Mechanical back pain with left lower extremity radiculopathy. PROCEDURE: 1. Removal of interspinous fixation device. 2. Exploration of fusion. 3. Pedicle screw instrumentation, L4-L5 bilaterally. 4. Posterior spinal fusion/appliance parts counter clerk lateral spinal fusion, L4-L5, right side. 5. Redo laminectomy and complete facetectomy L4-L5. 6. Lysis of adhesions and neurolysis. 7. Pedicle screw stimulation and neurodiagnostic testing. 8. Use of fluoroscopy for localization. 9. Use of operating microscope. (Refer to Operative Report) DISCHARGE DISPOSITION: Patient was discharged home. DISCHARGE INSTRUCTIONS: Post-op instructions given. Follow-up in a week. I have been assigned to complete a DC summary on this account, I was not involved with the patient's management.--J. Licauco, FILTER PRESS PUMPER Licauco,Madalyn Hays FILTER PRESS PUMPER Aug 21, 2019 22:30
== END 2019-08-20 09:45 | disposition home or self-care (01) | DRG 460 ==
LOC: SDSOVERFLO 06:12 → 3E 14:03
PROC: 0SP004Z Removal of Internal Fixation Device from Lumbar Vertebral Joint, Open Approach (ICD-10-PCS; principal; 2019-08-17 08:30)
PROC: 0SG0071 Fusion of Lumbar Vertebral Joint with Autologous Tissue Substitute, Posterior Approach, Posterior Column, Open Approach (ICD-10-PCS; principal; 2019-08-17 08:30)
DX: M96.0 Pseudarthrosis after fusion or arthrodesis (principal); T84.498A Other mechanical complication of other internal orthopedic devices, implants and grafts, initial encounter; M54.16 Radiculopathy, lumbar region; M51.26 Other intervertebral disc displacement, lumbar region; G89.18 Other acute postprocedural pain; F41.9 Anxiety disorder, unspecified; I95.81 Postprocedural hypotension
CPT/HCPCS: 36415; 72020; 76000; 86850; 86900; 86901; 87081; 94003; 94150; J2250; J2405; J2710